=== PATIENT | male | born 1995 | race Caucasian/White ===

== ENCOUNTER 2017-07-09 19:57 | Emergency (ER) | payer BC, MEDICAID ==
[2017-07-09] MEDS ORDERED: TORAdol 30 mg Injection IM ONE (20:16)
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
[2017-07-09] MEDS ORDERED: TORAdol 30 mg Injection ONE (20:20)
[2017-07-09 21:09] LABS: Appearance HAZY (CLEAR); Bilirubin NEGATIVE (NEGATIVE); Blood 50 Ery/ul (0-5); Glucose NEGATIVE (NEGATIVE); Ketones NEGATIVE (NEGATIVE); Leukocyte Esterase 1+ (NEGATIVE); Mucus MODERATE /HPF (NEGATIVE); Nitrite NEGATIVE (NEGATIVE); Protein,Urine Dip TRACE (Negative); Urobilinogen NORMAL mg/dL (0-1); WBC 25-50 /HPF (0-5)
[2017-07-09 21:10] LABS: Bacteria MODERATE /HPF (NEGATIVE); Epithelial Cells FEW /HPF (FEW)
[2017-07-09] MEDS ORDERED: ROCEPHIN 250 MG INJ IM ONE (21:35)
[2017-07-09] MEDS ORDERED: Vibramycin 100 MG PO ONE (21:35)
[2017-07-09] MEDS ORDERED: Vibramycin 100 MG ONE (21:38)
[2017-07-09] MEDS ORDERED: Rocephin 500 MG INJ ONE (21:38)
[2017-07-09 21:40] VITALS: O2SAT 100
[2017-07-09 22:00] VITALS: BP 126/62; PULSE 63
--- NOTE | 2017-07-10 08:44 | XRAY ---
Indication: Left testicular pain. Two-dimensional testicular sonogram performed. Comparison: None Both testicles homogeneous in echogenicity with normal color perfusion. Right testicle measures 4.6 x 2.3 x 2.7 cm and the left measures 4.1 x 2.1 x 2.7 cm. Left epididymis demonstrates hyperemic color flow favoring epididymitis. Tiny reactive hydrocele. Right epididymis unremarkable. No suspicious extratesticular mass. Impression: Left epididymis hyperemic color flow favoring epididymitis with tiny reactive hydrocele. Remaining testicular sonogram is negative. Comment: Preliminary report was given.
== END 2017-07-09 22:16 | disposition home or self-care (01) ==
LOC: ED 19:57
DX: N45.1 Epididymitis (principal); N50.812 Left testicular pain; X50.0XXA Overexertion from strenuous movement or load, initial encounter
CPT/HCPCS: 76870; 81000; 87086; 96372; 99283; 99284; J0696; J1885; A9270-GY

== ENCOUNTER 2018-03-07 15:31 | Emergency (ER) | payer BC, OTHER ==
[2018-03-07 15:44] VITALS: O2SAT 100
[2018-03-07] MEDS ORDERED: MORPHINE SULFATE 2 MG INJ ONE (15:49)
[2018-03-07] MEDS ORDERED: SILVADENE 50 GM TP ONE ×2 (15:49→16:39)
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
[2018-03-07] MEDS ORDERED: ARZOL Silver Nitrate Applicator TP STA (16:20)
[2018-03-07] MEDS ORDERED: MORPHINE SULFATE 2 MG INJ IV ONE (16:23)
[2018-03-07] MEDS ORDERED: Hydromorphone 1 mg/ml Ampule IV ONE (16:44)
[2018-03-07] MEDS ORDERED: Hydromorphone 1 mg/ml Ampule ONE (16:46)
[2018-03-07 18:29] VITALS: BP 106/65; PULSE 58
== END 2018-03-07 18:29 | disposition home or self-care (01) ==
LOC: ED 15:31
DX: T20.10XA Burn of first degree of head, face, and neck, unspecified site, initial encounter (principal); T22.10XA Burn of first degree of shoulder and upper limb, except wrist and hand, unspecified site, initial encounter; X08.8XXA Exposure to other specified smoke, fire and flames, initial encounter; Y93.89 Activity, other specified
CPT/HCPCS: 96374; 96376; 99284; J1170; J2270; A9270-GY

== ENCOUNTER 2021-03-10 08:15 | Emergency (ER) | payer BC, OTHER ==
[2021-03-10] MEDS ORDERED: BABY ASPIRIN 81 MG CHEW ONE (08:58)
[2021-03-10] MEDS ORDERED: TORAdol 30 mg Injection ONE (08:58)
[2021-03-10] MEDS: BABY ASPIRIN 81 MG CHEW PO ONE (08:58)
[2021-03-10 09:17] LABS: ALBUMIN 4.5 g/dL (3.5-5.0); ALKALINE PHOSPHATASE 87 U/L (38-126); ANION GAP 14.2 MEQ/L (5-15); BLOOD UREA NITROGEN 12 mg/dL (9-20); CHLORIDE 99 mmol/L (98-107); Calcium 9.2 mg/dL (8.4-10.2); Carbon Dioxide 27 mmol/L (22-30); Creatinine 1 0.73 mg/dL (0.66-1.25); EST GLOMERULAR FILTRATION RATE > 60.0 ML/MIN; Glucose 89 mg/dL (74-106); SGOT/AST 18 U/L (17-59); SGPT/ALT 12 U/L (0-50); SODIUM 137 mmol/L (137-145); Total Protein 7.1 g/dL (6.3-8.2)
[2021-03-10 09:23] LABS: BASOPHIL % 0.1 % (0.0-0.4); Basophil (Absolute #) 0.01 (0-0.4); Eosinophil % 0.1 % (0.00-5.0); Eosinophil (Absolute #) 0.01 (0-0.5); Hemoglobin 15.4 gm/dl (12.5-18.0); Lymphocytes % 5.1 % (24.0-44.0); Mean Cell Volume 92.4 fl (78-100); Mean Corpuscular Hemoglobin 30.9 pg (26-32); Mean Corpuscular Hgb Concent. 33.5 g/dl (32-36); Mean Platelet Volume 10.6 fl (7.5-11.0); Monocyte (Absolute #) 1.61 (0.0-1.3); Monocytes % 9.2 % (0.0-12.0); Neutrophil % 85.5 % (36.0-66.0); Platelet Count 251 K/mm3 (150-450); Red Blood Count 4.98 M/mm3 (4.1-5.6); Red Cell Distribution Width 12.3 % (11.5-14.0); White Blood Count 17.5 K/mm3 (4.0-10.5)
[2021-03-10] MEDS: TORAdol 30 mg Injection IV ONE (09:31)
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
--- NOTE | 2021-03-10 09:44 | XRAY ---
Indication: Chest pain. Comparison: None Portable chest hyperinflated and clear. Heart not enlarged. Bony thorax intact.
[2021-03-10 11:00] VITALS: O2SAT 97
[2021-03-10 11:10] LABS: Amphetamine,Urine NEGATIVE (NEGATIVE); Barbiturate,Urine NEGATIVE (NEGATIVE); Benzodiazepine,Urine NEGATIVE (NEGATIVE); Cocaine,Urine NEGATIVE (NEGATIVE); Opiate,Urine NEGATIVE (NEGATIVE); PCP,Urine NEGATIVE (NEGATIVE)
[2021-03-10 11:11] VITALS: BP 104/58; PULSE 60
[2021-03-10 11:14] LABS: Methadone,Urine NEGATIVE (NEGATIVE); THC,Urine NEGATIVE (NEGATIVE)
[2021-03-10 15:20] LABS: Slide Review 1 YES
== END 2021-03-10 11:14 | disposition home or self-care (01) ==
LOC: ED 08:15
DX: R07.89 Other chest pain (principal)
CPT/HCPCS: 36000; 36415; 71045; 80053; 80307; 84484; 85025; 85379; 93005; 93041; 96374; 96375; 96376; 99284; J1885; A9270-GY

== ENCOUNTER 2023-03-04 21:02 | Emergency (ER) | payer BC, OTHER ==
[2023-03-04 21:22] VITALS: TEMP 97.4
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
[2023-03-04 21:40] LABS: Absolute Neutrophil Ct (ANC) 4.36 x10^3/uL (1.4-6.9); BASOPHIL % 0.4 % (0.0-0.4); Basophil (Absolute #) 0.03 x10^3/uL (0-0.4); Eosinophil % 1.1 % (0.00-5.0); Eosinophil (Absolute #) 0.08 x10^3/uL (0-0.5); Hematocrit 42.5 % (42-50); Hemoglobin 14.3 g/dL (12.5-18.0); IMMATURE GRAN # 0.03 x10^3u/L (0.00-0.03); IMMATURE GRAN % 0.4 % (0.00-0.4); Lymphocytes % 29.9 % (24.0-44.0); Mean Cell Volume 91.6 fL (78-100); Mean Corpuscular Hemoglobin 30.8 pg (26-32); Mean Corpuscular Hgb Concent. 33.6 g/dL (32-36); Mean Platelet Volume 9.9 fL (7.5-11.0); Monocyte (Absolute #) 0.42 x10^3/uL (0.0-1.3); Neutrophil % 62.2 % (36.0-66.0); Platelet Count 253 x10^3/uL (150-450); Red Blood Count 4.64 x10^6/uL (4.1-5.6); Red Cell Distribution Width 11.7 % (11.5-14.0)
[2023-03-04 21:45] LABS: Erythrocyte Sedimentation Rate 1 mm/hr (0-15)
[2023-03-04 22:06] LABS: ALBUMIN 4.2 g/dL (3.5-5.0); ALKALINE PHOSPHATASE 61 U/L (38-126); ANION GAP 11.1 MEQ/L (5-15); BLOOD UREA NITROGEN 18 mg/dL (9-20); CHLORIDE 105 mmol/L (98-107); Calcium 9.2 mg/dL (8.4-10.2); Carbon Dioxide 26 mmol/L (22-30); Creatinine 1 0.67 mg/dL (0.66-1.25); EST GLOMERULAR FILTRATION RATE 132.9 ML/MIN; Glucose 116 mg/dL (74-106); MAGNESIUM 1.9 mg/dL (1.6-2.3); Potassium 3.5 mmol/L (3.5-5.1); SGOT/AST 24 U/L (17-59); SGPT/ALT 20 U/L (0-50); SODIUM 138 mmol/L (137-145); TROPONIN < 0.012 ng/mL (0.000-0.034)
[2023-03-04 22:08] VITALS: RESP 18
[2023-03-04 22:09] LABS: Appearance Clear (Clear); Bacteria None Seen /HPF (None Seen); Bilirubin Negative (Negative); Blood Negative (Negative); Epithelial Cells None Seen /HPF (None Seen); Glucose, Urine Negative (Negative); Hyaline Casts NONE SEEN /LPF (0-2); Ketones Trace (Negative); Leukocyte Esterase Negative (Negative); Nitrite Negative (Negative); Ph 5.5 (4.6-8.0); Protein,Urine Dip Negative (Negative); RBC 0-2 /HPF (0-5); Specific Gravity >=1.030 (1.005-1.030); Urobilinogen 0.2 mg/dL (0.2); WBC 0-2 /HPF (0-5)
[2023-03-04 22:13] LABS: ADD URINE CULTURE? NO (NO)
[2023-03-04 22:19] LABS: Amphetamine,Urine NEGATIVE (NEGATIVE); Barbiturate,Urine NEGATIVE (NEGATIVE); Benzodiazepine,Urine NEGATIVE (NEGATIVE); Cocaine,Urine NEGATIVE (NEGATIVE); Methadone,Urine NEGATIVE (NEGATIVE); Opiate,Urine NEGATIVE (NEGATIVE); PCP,Urine NEGATIVE (NEGATIVE); THC,Urine NEGATIVE (NEGATIVE)
[2023-03-04 22:39] VITALS: BP 118/74; PULSE 72; O2SAT 98
--- NOTE | 2023-03-05 08:01 | XRAY ---
Indication: Palpitations. Comparison: March 10, 2021 PA/lateral chest again hyperinflated and clear. Heart and mediastinal structures within normal limits. Bony thorax intact. Impression: Continued nonacute hyperinflated chest.
== END 2023-03-04 22:41 | disposition home or self-care (01) ==
LOC: ED 21:02
DX: R00.2 Palpitations (principal); R42 Dizziness and giddiness; Z28.310 Unvaccinated for COVID-19
CPT/HCPCS: 36415; 71046; 80053; 80307; 81001; 83735; 84484; 85025; 85379; 85652; 93005; 93225; 99283